=== PATIENT | male | born 1960 | race Hispanic/Latino ===

== ENCOUNTER → 2018-02-25 | Outpatient (CLI) | payer OTHER ==
--- NOTE | 2018-02-25 15:55 | Diagnostic Imaging Report ---
PROCEDURE:X-RAY ABDOMEN - KUB COMPARISON:[facility], DX, ABDOMEN-1VIEW (KUB), 05/26/2017, 11:27. INDICATIONS:CALCULUS OF KIDNEY FINDINGS: Nonobstructive bowel gas pattern with moderate amount of retained stool in the colon, which partly obscures the renal shadows. Ill-defined 3-4 mm radiopaque density projecting in the mid to inferior right kidney may represent a nonobstructing calculus. No other calcific densities project over the genitourinary system. Left pelvic phlebolith, stable. No acute bony abnormalities. Degenerative changes in the lumbosacral spine CONCLUSION: Ill defined 3-4 mm radiopaque density projects in the mid to inferior right kidney and may represent a nonobstructing calculus. Mazin Fajardo M.D. Dictated by: Mazin Fajardo M.D. on 02/25/2018 at 15:56 Electronically approved by: Mazin Fajardo M.D. on 02/25/2018 at 15:56
== END ==
LOC: RAD 13:28
PROVIDERS: ATTEND Urology
DX: R10.9 Unspecified abdominal pain (principal)
CPT/HCPCS: 74018

== ENCOUNTER → 2019-03-17 | Outpatient (CLI) | payer OTHER ==
--- NOTE | 2019-03-17 10:45 | Diagnostic Imaging Report ---
Exam: KUB - 2 views Clinical History: Renal calculus. Comparison: KUB 05/26/2017. Findings: Nonobstructive bowel gas pattern. Bowel gas partially obscures visualization of the kidneys. No evidence of calcification overlying the kidneys or expected course of the ureters. Unchanged left pelvic phlebolith. No acute bony abnormality. Impression: No radiographic evidence of nephrolithiasis. Signed by: Dr. Kelby Sommers MD on 03/17/2019 10:42 AM
== END ==
LOC: RAD 10:02
PROVIDERS: ATTEND Urology
DX: N20.0 Calculus of kidney (principal)
CPT/HCPCS: 74018

== ENCOUNTER → 2019-10-18 | Outpatient (CLI) | payer OTHER ==
--- NOTE | 2019-10-18 16:15 | Diagnostic Imaging Report ---
EXAM: ABDOMEN-1VIEW (KUB) DATE: 10/18/2019 3:00 PM INDICATION: History of renal calculus COMPARISON: 03/17/2019 FINDINGS: Bowel gas pattern appears nonobstructive. No pathologically dilated loops of bowel identified. No abnormal calcification/stone is identified overlying the renal shadows. Stable appearing left pelvic phleboliths noted. No other abnormal intra-abdominal calcification is appreciated. No acute osseous abnormality identified. IMPRESSION: No radiographic evidence for nephrolithiasis. Signed by: Dr. Benjamin Gomez MD on 10/18/2019 4:12 PM
== END ==
LOC: RAD 14:53
PROVIDERS: ATTEND Urology
DX: N20.0 Calculus of kidney (principal)
CPT/HCPCS: 74018

== ENCOUNTER → 2020-11-08 | Outpatient (CLI) | payer OTHER | LOC: RAD 17:07 | PROVIDERS: ATTEND Urology | DX: N20.0 Calculus of kidney (principal) | CPT/HCPCS: 74018 ==